=== PATIENT | male | born 1940 | race Caucasian/White ===

== ENCOUNTER 2019-09-06 12:25 | Day surgery (SDC) | payer MEDICARE, OTHER, SELFPAY ==
[2019-09-06] VITALS (9 sets, daily range): BP systolic 92–117; BP diastolic 58–83; PULSE 80–118; RESP 9–15; TEMP 36.3–36.8; O2SAT 93–100; BMI 24.1
--- NOTE | 2019-09-06 | PATH_ITS ---
[facility] Accession Number: [id number] . 01 Material submitted: . bone - L2 VERTEBRAL BONE BIOPSY . 02 Diagnosis: L2 Vertebral Bone, Biopsy: Scant fragments of woven and lamellar bone. Scant bone marrow with trilineage hematopoiesis. No evidence of neoplasia. [facility] 09/08/2019 1438 Local . 02 Electronically signed: . Kindra De La Cruz MD, Pathologist NPI- [id number] . 01 Gross description: . Received one formalin-filled container labeled with the patient's name and labeled L2 vertebral bone is an extremely tiny less than 0.1 cm fragment of possible bone and blood. The specimen is filtered, wrapped and entirely submitted in one cassette to be placed in decal for softening. ([facility] [place]:[id number]) /[facility] 09/07/2019 1820 Local . 02 Pathologist provided ICD-10: M54.40 . 02 CPT . 801721 Performed at: 01 [facility] [address] [facility], [place], [place] [id number] MD Linwood Ibrahim MD Phone: [phone] Performed at: 02 [facility] [address] [place], [place] [id number] MD Kindra De La Cruz MD Phone: [phone]
[2019-09-06] MEDS: LACTATED RINGERS 1,000 ML 42 ML IV (13:18)
--- NOTE | 2019-09-06 15:06 | PM.PREOP ---
Pre-operative Note Interval Note History & Physical reviewed/Exam performed by Physician: Yes Changes to H&P: No
--- NOTE | 2019-09-06 15:06 | PM.OP.1 ---
Operative Date/Time/Diagnoses Date of procedure: 09/06/19 Time of procedure: 15:52 Pre-op diagnosis: L2 compression fracture Back pain Post-op diagnosis: same Procedure & Clinicians Procedure: L2 kyphoplasty Same procedure as scheduled: Yes Indications: [age] year old male with intractable pain from an acute L2 compression fracture. They had failed conservative management and requested operative intervention. Risks and benefits of surgery were discussed and appropriate consents were obtained. Surgeon: Camacho Naik Click Yes if Unassisted: Yes Anesthesia Type: General Operative Notes Findings: None Closure Type: primary Specimen(s): other (L2 vertebral biopsy) Estimated Blood Loss (mL): 2 Procedure in detail: The patient was brought to the operating room and intubated on the table. They were then rolled over to the well-padded prone position. Time-out was performed. We confirmed positioning with two fluoroscopy views. The back was prepped and draped in the standard sterile fashion. Preoperative antibiotics were given. Using fluoroscopic guidance, the planned incision site was infiltrated with Marcaine with epinephrine and injected down to the entry site of the left pedicle of L2. A small stab incision was made and we advanced a Jamshiedi needle down the left pedicle into the vertebral body. A bone biopsy was harvested from this and sent to pathology. We then passed the DFine osteotome and opened it up to create a void inside the vertebral body. We then began injecting the cement. This was done with frequent fluoroscopy imaging. There was no extravasation but the cement began going towards the back wall and we did not inject further. We had good fill of the L2 vertebral body the injection was stopped and the trocars were removed. Final x-rays were taken. The wound was cleaned. Steri-Strips and sterile dressing were placed. Patient was rolled over, extubated, and brought to recovery without complications. Complications: none Post-operative Condition: stable Disposition: PACU Plan for aftercare: Outpatient. Activity as tolerated
[2019-09-06] MEDS: CEFAZOLIN 2 GM/100 ML FROZ.PIGGY IV (15:15)
--- NOTE | 2019-09-06 15:38 | SUR.OPER ---
Prone on padded OR bed serena flat table, head in foam head support, gel chest rolls, gel pad under knees, pillow under lower legs, toes free of pressure, arms secured on padded arm boards at <90 degrees abduction. Safety belt at thigh.
[2019-09-06] MEDS: BUPIVACAINE 0.25% W/ EPI (PF) 10 ML VIAL INJ (15:47)
--- NOTE | 2019-09-06 16:09 | SUR.PHASEI ---
care assumed, report recieved. pt awake responding denies pain or nausea, voided via urinal.
--- NOTE | 2019-09-06 16:12 | SUR.PHASEI ---
dentures returned to patient.
--- NOTE | 2019-09-06 16:20 | SUR.PHASEI ---
1601 late entry - reported off to Gwen Carolina RN. Pt sleeping
--- NOTE | 2019-09-06 17:36 | DI.RAD.S_ITS ---
PROCEDURE: XR LUMBAR SPINE MIN 4V INDICATIONS: L2 KYPHOPLASTY TECHNIQUE: 4 views of the lumbar spine acquired. COMPARISON: None. FINDINGS: 4 intraoperative fluoroscopy images demonstrate kyphoplasty of L2. IMPRESSION: L2 kyphoplasty. Dictated by: Tootie Lerma M.D. on 09/06/2019 at 18:08 Approved by: Tootie Lerma M.D. on 09/06/2019 at 18:09
== END 2019-09-06 17:01 | disposition home or self-care (01) ==
PROVIDERS: PCP Family Medicine; Visit Provider Orthopaedic Surgery
PROC: (CPT 22514; principal; 2019-09-06 15:00)
DX: S32.020A Wedge compression fracture of second lumbar vertebra, initial encounter for closed fracture (principal); M54.9 Dorsalgia, unspecified; I10 Essential (primary) hypertension; E78.5 Hyperlipidemia, unspecified; I48.0 Paroxysmal atrial fibrillation; Z86.73 Personal history of transient ischemic attack (TIA), and cerebral infarction without residual deficits; Z72.0 Tobacco use
CPT/HCPCS: 22514; 72110; 76000; C1776; J0690; J2405; J2704; J3010